=== PATIENT | female | born 1995 | race Hispanic/Latino ===

== ENCOUNTER 2017-05-20 21:49 | Emergency (ER) | payer OTHER ==
[2017-05-20 22:58] VITALS: BP 120/74; PULSE 102; RESP 18; TEMP 98.7; O2SAT 98
--- NOTE | 2017-05-20 23:27 | ED PDOC ---
HPI: General Adult Time Seen by Provider: 05/20/17 23:13 Chief Complaint (Nursing): ENT Problem Chief Complaint (Provider): Sinus pressure, sore throat x 4 months History Per: Patient History/Exam Limitations: no limitations Onset/Duration Of Symptoms: Days Have you had recent travel within the past 21 days to any of the following countries: [place], [place], [place] or [place]?: No Current Symptoms Are (Timing): Still Present Additional Complaint(s): 22 yo female with history of chronic sinusitis presents with sinus pressure and sore throat. PT denies fever/chills. PT states that she was seen twice 2 months ago by ENT and placed on 2 courses of antibiotics. PT states it was better for a short time but it is nor worse. Past Medical History Reviewed: Historical Data, Nursing Documentation, Vital Signs Vital Signs: Last Vital Signs Temp 98.7 F 05/20/17 22:55 Pulse 102 H 05/20/17 22:55 Resp 18 05/20/17 22:55 BP 120/74 05/20/17 22:55 Pulse Ox 98 05/20/17 22:55 - Medical History PMH: No Chronic Diseases - Surgical History Surgical History: No Surg Hx - Family History Family History: States: No Known Family Hx - Living Arrangements Living Arrangements: With Family - Social History Current smoker - smoking cessation education provided: No - Home Medications Home Medications: Ambulatory Orders Medication Instructions Recorded Ibuprofen [Motrin] 1 tab PO Q8 PRN #21 tab 09/06/14 Doxycycline Hyclate 100 mg PO BID #20 capsule 05/20/17 predniSONE [predniSONE Tab] 20 mg PO DAILY #12 tab 05/20/17 - Allergies Allergies/Adverse Reactions: Allergies Allergy/AdvReac Type Severity Reaction Status Date / Time No Known Allergies Allergy Verified 09/06/14 16:53 Review of Systems ROS Statement: Except As Marked, All Systems Reviewed And Found Negative Constitutional: Negative for: Fever, Chills ENT: Positive for: Throat Pain Respiratory: Negative for: Cough Physical Exam - Reviewed Nursing Documentation Reviewed: Yes Vital Signs Reviewed: Yes - Physical Exam Appears: Positive for: Well, Non-toxic, No Acute Distress Head Exam: Positive for: ATRAUMATIC, NORMAL INSPECTION, NORMOCEPHALIC Skin: Positive for: Normal Color, Warm, DRY Eye Exam: Positive for: Normal appearance ENT: Positive for: Normal ENT Inspection Neck: Positive for: Normal, Painless ROM Cardiovascular/Chest: Positive for: Regular Rate, Rhythm Respiratory: Positive for: Normal Breath Sounds. Negative for: Accessory Muscle Use, Respiratory Distress Back: Positive for: Normal Inspection Extremity: Positive for: Normal ROM Neurologic/Psych: Positive for: Alert, Oriented - ECG O2 Sat by Pulse Oximetry: 98 Disposition - Clinical Impression Clinical Impression: Sinusitis - Patient ED Disposition Is Patient to be Admitted: No Counseled Patient/Family Regarding: Diagnosis, Need For Followup, Rx Given - Disposition Disposition: Routine/Home Disposition Time: 23:25 Condition: GOOD Prescriptions: Doxycycline Hyclate 100 mg PO BID #20 capsule predniSONE [predniSONE Tab] 20 mg PO DAILY #12 tab Instructions: Sinusitis, Adult (DC)
== END 2017-05-22 04:23 | disposition short-term general hospital (02) ==
LOC: H.ER 21:49
DX: J32.9 Chronic sinusitis, unspecified (principal)